=== PATIENT | female | born 1985 | race Caucasian/White ===

== ENCOUNTER → 2023-10-25 | Outpatient (CLI) | payer OTHER ==
--- NOTE | 2023-10-25 11:03 | MR ---
EXAMINATION TYPE: MR knee RT wo con DATE OF EXAM: 10/25/2023 COMPARISON: None HISTORY: Rt knee pain TECHNIQUE: Multiplanar, multisequence imaging of the right knee is performed without IV contrast. FINDINGS: MEDIAL MENISCUS: Anterior and posterior horns are intact without tear. LATERAL MENISCUS: Posterior horn lateral meniscus is diminutive in size and could reflect a tear of p ostprocedural change. Correlate clinically. The meniscal body and anterior horn appear to be of mar l size. CRUCIATE LIGAMENTS: There is mild increased signal within the ACL which could reflect mild strain and less likely intrasubstance tear. No evidence for full-thickness tear. PCL is intact. COLLATERAL LIGAMENTS: The medial collateral ligament and lateral collateral ligament complex are inta ct and unremarkable. EXTENSOR MECHANISM: Visualized quadriceps and patellar tendons are intact. EFFUSION: No significant suprapatellar joint effusion. POPLITEAL CYST: No popliteal/jeffers cyst. TRICOMPARTMENT SPACES: Mild degenerative narrowing patellofemoral joint space. Medial and lateral lizbeth nt spaces are well-preserved. CARTILAGE: Intact BONE MARROW SIGNAL: No focal abnormal marrow signal is appreciated. OTHER: No additional significant abnormality is appreciated. IMPRESSION: 1. Diminutive posterior horn lateral meniscus could be postprocedural in nature versus related to tea r. Correlate clinically. 2. Mild increased signal within the ACL may reflect strain and less likely intrasubstance tear. No fu ll-thickness tear is seen.
== END | disposition home or self-care (01) ==
LOC: RADMRIMAIN 06:38
PROVIDERS: ATTEND Orthopaedic Surgery Sports Medicine
DX: M23.306 Other meniscus derangements, unspecified meniscus, right knee (principal); S83.203A Other tear of unspecified meniscus, current injury, right knee, initial encounter